=== PATIENT | female | born 1965 | race Caucasian/White ===

== ENCOUNTER 2020-09-29 15:39 | Outpatient (CLI) | payer BC | END 2020-09-29 15:40 | disposition home or self-care (01) | LOC: BICMAMMO 15:39 | PROVIDERS: ATTEND Internal Medicine | DX: Z12.31 Encounter for screening mammogram for malignant neoplasm of breast (principal) | CPT/HCPCS: 77063; 77067 ==

== ENCOUNTER 2022-02-17 08:02 | Outpatient (CLI) | payer OTHER | END 2022-02-17 08:03 | disposition home or self-care (01) | LOC: BICMAMMO 08:02 | PROVIDERS: ATTEND Family Medicine | DX: Z12.31 Encounter for screening mammogram for malignant neoplasm of breast (principal); Z12.2 Encounter for screening for malignant neoplasm of respiratory organs; F17.210 Nicotine dependence, cigarettes, uncomplicated; R91.8 Other nonspecific abnormal finding of lung field | CPT/HCPCS: 71271; 77063; 77067 ==

== ENCOUNTER 2022-03-30 13:36 | Emergency (ER) | payer OTHER ==
[2022-03-30] MEDS ORDERED: hydrOXYzine 25 MG TAB ONE (14:23)
[2022-03-30] MEDS ORDERED: Acetaminophen 500 MG TAB ONE (14:23)
== END 2022-03-30 17:15 | disposition home or self-care (01) ==
LOC: ERS 13:36
DX: S82.001A Unspecified fracture of right patella, initial encounter for closed fracture (principal); I10 Essential (primary) hypertension; V89.2XXA Person injured in unspecified motor-vehicle accident, traffic, initial encounter
CPT/HCPCS: 71046

== ENCOUNTER 2022-04-15 15:18 | Outpatient (CLI) | payer OTHER | END 2022-04-15 15:19 | disposition home or self-care (01) | LOC: CT 15:18 | PROVIDERS: ATTEND Family Medicine | DX: S29.9XXA Unspecified injury of thorax, initial encounter (principal); S22.20XA Unspecified fracture of sternum, initial encounter for closed fracture; R91.8 Other nonspecific abnormal finding of lung field; K76.9 Liver disease, unspecified | CPT/HCPCS: 71250 ==

== ENCOUNTER 2023-03-31 14:58 | Outpatient (CLI) | payer OTHER | END 2023-03-31 14:59 | disposition home or self-care (01) | LOC: BICMAMMO 14:58 | PROVIDERS: ATTEND Physician Assistant | DX: Z12.31 Encounter for screening mammogram for malignant neoplasm of breast (principal) | CPT/HCPCS: 77063; 77067 ==